=== PATIENT | male | born 1945 | race Caucasian/White ===

== ENCOUNTER 2020-12-14 16:11 | Emergency (ER) | payer MEDICARE ==
[2020-12-14] MEDS ORDERED: Aspirin Chewable 81 MG TAB ONE (16:48)
--- NOTE | 2020-12-14 17:00 | RAD ---
Portable frontal chest radiograph: 12/14/2020 COMPARISON: 06/22/2014 HISTORY: Shortness of breath FINDINGS: There is pulmonary vascular congestion with new interstitial and alveolar opacity in both l bhavana bases. There is a moderate size pleural effusion on the right with pleural density within the right lateral hemithorax and right costophrenic angle region. No pneumothorax is seen. Small left ple ural effusion is suspected. There is a postsurgical anchor overlying the humeral head on the right. Elevation of the left humeral head suggests a left rotator cuff tear. IMPRESSION: New perihilar and bibasilar interstitial and alveolar opacity with associated bilateral p leural effusions, right greater than left. Findings are most consistent with pulmonary edema. Infectious pneumonitis or aspiration cannot be excluded. Recommend follow-up imaging following treatm ent to document resolution.
[2020-12-14 17:22] LABS: #Basophils 0.1 thou/uL (0.0-0.2); #Lymphocytes 0.6 thou/uL (1.20-3.40); #Monocytes 0.4 thou/uL (0.11-0.59); #Neutrophils 16.6 thou/uL (1.40-6.50); %Basophils 0.3 % (0.0-1.0); %Lymphocytes 3.2 % (21.0-51.0); %Monocytes 2.4 % (0.0-10.0); Anisocytosis SLIGHT = 6-15 cells (100X) (0-5/hpf); Hemoglobin 13.9 g/dL (14.0-18.0); MDiff Complete? YES; Mean Corpuscular HGB CONC 32.5 g/dL (32.0-36.0); Mean Corpuscular Hemoglobin 29.8 pg (27.0-31.0); Mean Corpuscular Volume 91.5 fL (78.0-98.0); Mean Platelet Volume 6.8 fL (7.4-10.4); Platelet Count 116 thou/uL (130-400); Platelet Morphology Comment Appears Decreased; Red Blood Cell (RBC) Count 4.67 mill/uL (4.70-6.10); Target Cells SLIGHT = 2-5 cells (100X) (0-1/hpf); White Blood Cell (WBC) Count 17.7 thou/uL (4.8-10.8)
[2020-12-14 17:24] LABS: ALT (SGPT) 71 U/L (8-55); AST (SGOT) 32 U/L (5-34); Albumin 3.4 g/dL (3.4-4.8); Alkaline Phosphatase 103 U/L (40-110); Anion Gap 17 mmol/L (10-20); BUN (Urea Nitrogen) 42 mg/dL (8.4-25.7); Bilirubin, Total 0.6 mg/dL (0.2-1.2); Calc. Creatinine Clearance 0 mL/min (70-130); Calcium 8.5 mg/dL (7.8-10.44); Carbon Dioxide 18 mmol/L (23-31); Chloride 108 mmol/L (98-107); Globulin 2.5 g/dL (2.4-3.5); Glucose 178 mg/dL (83-110); Potassium 4.8 mmol/L (3.5-5.1); Protein, Total 5.9 g/dL (5.8-8.1); Sodium 138 mmol/L (136-145)
[2020-12-14] MEDS ORDERED: cefTRIAXone\\ROCEPHIN 1 GM VIAL ONE (17:58)
[2020-12-14] MEDS ORDERED: Azithromycin 250 MG TAB ONE (17:58)
[2020-12-14 18:04] LABS: CKMB 8.4 ng/mL (0-6.6)
== END 2020-12-14 20:00 | disposition home or self-care (01) ==
LOC: MADERS 16:11
DX: J18.9 Pneumonia, unspecified organism (principal); E11.40 Type 2 diabetes mellitus with diabetic neuropathy, unspecified; I73.9 Peripheral vascular disease, unspecified; J44.9 Chronic obstructive pulmonary disease, unspecified; E78.00 Pure hypercholesterolemia, unspecified; I11.0 Hypertensive heart disease with heart failure; I50.9 Heart failure, unspecified; Z86.73 Personal history of transient ischemic attack (TIA), and cerebral infarction without residual deficits; Z79.82 Long term (current) use of aspirin; Z79.84 Long term (current) use of oral hypoglycemic drugs; Z79.01 Long term (current) use of anticoagulants; Z79.899 Other long term (current) drug therapy
CPT/HCPCS: 36415; 71045; 80053; 82553; 83880; 84484; 85025; 93005; 96372; J0696; J7620